=== PATIENT | male | born 1990 | race African-American/Black ===

== ENCOUNTER 2017-05-02 08:17 | Emergency (ER) | payer MEDICAID ==
[2017-05-02 10:33] VITALS: BP 134/81
--- NOTE | 2017-05-03 01:31 | ER ---
DATE SEEN: 05/02/2017 HISTORY OF PRESENT ILLNESS: The patient is a 26-year-old gentleman who last night slammed his right middle finger in his car door, has swelling of middle finger, primarily at the PIP joint. No nail involved. Has limited range of motion in that joint, has swelling and pain. Has taken ibuprofen without relief or benefit. ALLERGIES: No known drug allergies. CURRENT MEDICATIONS: Ibuprofen. PAST FAMILY MEDICAL HISTORY: Noncontributory. SOCIAL HISTORY: He is a student from [employer]. REVIEW OF SYSTEMS: CONSTITUTIONAL: No nausea, vomiting, fevers, or chills. PHYSICAL EXAMINATION: VITAL SIGNS: Temperature 36.9, pulse is 70, blood pressure 137/74, respiratory rate 18, 98% on room air. GENERAL: No apparent acute distress. EXTREMITIES: Right hand has no tenderness in the wrist, has swelling at his 3rd PIP joint. No subungual blood. Sensation is normal. No obvious deformity. RADIOGRAPHICAL DATA: X-ray, three view of his right hand, is negative for fracture. ASSESSMENT: Right 3rd finger contusion. PLAN: Satish tape. Ice for swelling. Ultram is written for pain. /[id number] PING/ERENDIRA
--- NOTE | 2017-05-03 12:29 | CR ---
INDICATION: Slammed hand in car door. Jammed 3rd finger. RIGHT HAND, 3 VIEWS: FINDINGS: No comparison imaging. I do not see a fracture or dislocation as visualized. If the patient should continue to have symptoms, consider follow-up radiographs in 7-10 days. BRADLEYD
== END 2017-05-02 09:30 | disposition home or self-care (01) ==
LOC: FB.ED 08:17
DX: S60.031A Contusion of right middle finger without damage to nail, initial encounter (principal); W23.0XXA Caught, crushed, jammed, or pinched between moving objects, initial encounter
CPT/HCPCS: 73130-RT; 99283

== ENCOUNTER 2017-09-14 10:03 | Emergency (ER) | payer MEDICAID ==
--- NOTE | 2017-09-14 10:29 | EDM.PDOC ---
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 as well taken no meds at home except naproxen for his knee and MVI lives alone at present labs 3m ago (CBC, BMP, uric acid) were neg he ate eggs 2h ago - Related Data Allergies Allergy/AdvReac Type Severity Reaction Status Date / Time No Known Allergies Allergy Verified 05/02/17 08:22 Home Meds: Home Meds traMADol [Ultram] 50 mg PO Q4H PRN #7 tab 05/02/17 [Rx] Loperamide [Imodium AD] 2 mg PO Q1H PRN #20 tablet 09/14/17 [Rx] Metoclopramide HCl 10 mg PO Q6H PRN #10 tablet 09/14/17 [Rx] Past Medical History Psychiatric History: Reports: Anxiety, Depression, Other (See Below) Other Psychiatric History: states was on medication but stopped taking 1 year ago Social & Family History - Family History Family Medical History: Noncontributory - Tobacco Use Smoking Status *Q: Light Tobacco Smoker Years of Tobacco use: 4 Packs/Tins Daily: 0 - Caffeine Use Caffeine Use: Reports: Energy Drinks, Soda - Recreational Drug Use Recreational Drug Use: No ED ROS GENERAL - Review of Systems Review Of Systems: See Below Constitutional: Reports: No Symptoms HEENT: Reports: No Symptoms Respiratory: Reports: No Symptoms Cardiovascular: Reports: No Symptoms Endocrine: Reports: No Symptoms GI/Abdominal: Reports: Diarrhea, Nausea, Vomiting. Denies: Abdominal Pain : Reports: No Symptoms Musculoskeletal: Reports: No Symptoms Skin: Reports: No Symptoms Neurological: Reports: No Symptoms Psychiatric: Reports: No Symptoms Hematologic/Lymphatic: Reports: No Symptoms Immunologic: Reports: No Symptoms ED EXAM, GENERAL - Physical Exam Exam: See Below Exam Limited By: No Limitations General Appearance: Alert, WD/WN, No Apparent Distress Ears: Normal External Exam, Hearing Grossly Normal Nose: Normal Inspection, Normal Mucosa, No Blood Throat/Mouth: Normal Inspection, Normal Lips, Normal Teeth, Normal Gums, Normal Oropharynx, Normal Voice, No Airway Compromise Head: Atraumatic, Normocephalic Neck: Normal Inspection, Supple, Non-Tender, Full Range of Motion Respiratory/Chest: No Respiratory Distress, Lungs Clear, Normal Breath Sounds, No Accessory Muscle Use, Chest Non-Tender Cardiovascular: Normal Peripheral Pulses, Regular Rate, Rhythm, No Edema, No Gallop, No JVD, No Murmur, No Rub GI/Abdominal: Normal Bowel Sounds, Soft, Non-Tender, No Organomegaly, No Distention, No Mass Back Exam: Normal Inspection, Full Range of Motion, NT Extremities: Normal Inspection, Normal Range of Motion, Non-Tender, No Pedal Edema Neurological: Alert, Oriented, CN II-XII Intact, Normal Cognition, Normal Gait, No Motor/Sensory Deficits Psychiatric: Normal Affect, Normal Mood Skin Exam: Warm, Dry, Intact, Normal Color, No Rash Lymphatic: No Adenopathy Departure - Departure Time of Disposition: 10:26 Disposition: Home, Self-Care 01 Condition: Good Clinical Impression: Viral gastroenteritis - Discharge Information Prescriptions: Loperamide [Imodium AD] 2 mg PO Q1H PRN #20 tablet PRN Reason: Diarrhea Metoclopramide HCl 10 mg PO Q6H PRN #10 tablet PRN Reason: Nausea Instructions: Viral Gastroenteritis, Adult, [id number] Referrals: PCP,Not In Area [Primary Care Provider] - Forms: ED Department Discharge, ED Return to Work/School Form Additional Instructions: For diarrhea, take loperamide 2 mg 2 tabs after next loose stool, then 1 tab after each loose stool up to 8 tabs in 24 hours. For nausea, take metoclopramide 10 mg 1 tab every 6 hours as needed. Increase fluids. No work today. See your doctor in 3 days if you are not better. Call your Physician or Return to Emergency Department if: * Your condition worsens in any way. * You develop fever greater than 100.4. * You have vomiting that does not stop with medications. * You have pain that is not controlled with medications.
[2017-09-14 10:34] VITALS: BP 136/64
== END 2017-09-14 10:37 | disposition home or self-care (01) ==
LOC: FB.ED 10:03
DX: A08.4 Viral intestinal infection, unspecified (principal); F17.210 Nicotine dependence, cigarettes, uncomplicated
CPT/HCPCS: 99283

== ENCOUNTER 2017-10-13 16:35 | Emergency (ER) | payer MEDICAID ==
[2017-10-13] MEDS ORDERED: Bupivacaine 0.5% 30 ML SDV INFILT ONE (16:36)
[2017-10-13] MEDS ORDERED: Lidocaine/EPINEPHrine/Tetracaine Soln 5 ML Each TOP STA (17:12)
--- NOTE | 2017-10-13 18:05 | EDM.PDOC ---
ED HPI GENERAL MEDICAL PROBLEM - General Chief Complaint: Laceration Stated Complaint: HEAD WOUND Time Seen by Provider: 10/13/17 16:40 Source of Information: Reports: Patient History Limitations: Reports: No Limitations - History of Present Illness INITIAL COMMENTS - FREE TEXT/NARRATIVE: 26 y.o.b.male came to the ed shortly after he fell over a ball and hit head on the ground at his own homw, no LOC. Pt noticed a LAC at his mid forehead, no active bleed. No N/V/D or any other acute medical issues. BP 152/82 pulse 84 Temp 37.2. Pt denies drug use. Onset: Today Onset Date: 10/26/17 Onset Time: 16:00 Duration: Minutes: Location: Reports: Head Quality: Reports: Dull Severity: Mild Improves with: Reports: Rest Worsens with: Reports: Movement Context: Reports: Other (fell over a ball and hit head on the ground, no LOC) Treatments CONSTRUCTION GRIP: Reports: NSAIDS Frontal Head Pain Score (Numeric/FACES): 8 - Related Data Allergies Allergy/AdvReac Type Severity Reaction Status Date / Time No Known Allergies Allergy Verified 10/13/17 16:50 Home Meds: Home Meds NK [No Known Home Meds] 09/14/17 [History] Past Medical History - Past Health History Medical/Surgical History: Denies Medical/Surgical History Psychiatric History: Reports: Anxiety, Depression, Other (See Below) Other Psychiatric History: states was on medication but stopped taking 1 year ago - Infectious Disease History Infectious Disease History: Reports: Chicken Pox Social & Family History - Family History Family Medical History: Noncontributory - Tobacco Use Smoking Status *Q: Light Tobacco Smoker Years of Tobacco use: 4 Packs/Tins Daily: 0 Tobacco Use Comment: rarely - Caffeine Use Caffeine Use: Reports: None - Recreational Drug Use Recreational Drug Use: No ED ROS GENERAL - Review of Systems Review Of Systems: See Below Constitutional: Reports: No Symptoms HEENT: Reports: Other (head lac) Respiratory: Reports: No Symptoms Cardiovascular: Reports: No Symptoms Endocrine: Reports: No Symptoms GI/Abdominal: Reports: No Symptoms : Reports: No Symptoms Musculoskeletal: Reports: No Symptoms Skin: Reports: Wound (mid forehead) Neurological: Reports: No Symptoms Psychiatric: Reports: No Symptoms Hematologic/Lymphatic: Reports: No Symptoms Immunologic: Reports: No Symptoms ED EXAM, SKIN/RASH Exam: See Below Exam Limited By: No Limitations General Appearance: Alert, WD/WN, Mild Distress Eye Exam: Bilateral Eye: Normal Inspection Ears: Normal External Exam Nose: Normal Inspection Throat/Mouth: Normal Inspection Head: Normocephalic, Other (forehead head laceration) Neck: Normal Inspection, Supple, Non-Tender Respiratory/Chest: No Respiratory Distress, Lungs Clear, Normal Breath Sounds Cardiovascular: Normal Peripheral Pulses, Regular Rate, Rhythm, No Edema, No Gallop GI/Abdominal: Normal Bowel Sounds, Soft, Non-Tender, No Organomegaly (Male) Exam: Deferred Rectal (Males) Exam: Deferred Back Exam: Normal Inspection, Full Range of Motion Extremities: Normal Inspection, Normal Range of Motion, Non-Tender Neurological: Alert, Oriented, CN II-XII Intact, Normal Cognition, Normal Gait Psychiatric: Normal Affect, Normal Mood Skin: Warm, Dry, Normal Color, No Rash, Other (LAC mid forhead) Location, Skin: Head Lymphatic: No Adenopathy ED SKIN PROCEDURES - Laceration/Wound Repair Middle Anterior Hand Lac/Wound length In cm: 3.5 Appearance: Subcutaneous, Linear, Clean Distal NVT: Neuro & Vascular Intact, No Tendon Injury Anesthetic Type: Local Local Anesthesia - Bupivicaine (Marcaine): 0.5% Plain Local Anesthetic Volume: 5cc Skin Prep: Providone-Iodine (Betadine) Exploration/Debridement/Repair: Wound Explored, In a Bloodless Field, Explored to Base Closed with: Sutures Suture Size: 4-0 # of Sutures: 8 Suture Type: Interrupted, Other (ethilon) Tetanus Status Addressed: Other (pt will check his tetanus Status in am. He was adviced to check on that in the next 72 hours.) Complications: No Course - Vital Signs Text/Narrative:: 26 y.o.b.male came to the ed shortly after he fell over a ball and hit head on the ground at his own homw, no LOC. Pt noticed a LAC at his mid forehead, no active bleed. No N/V/D or any other acute medical issues. BP 152/82 pulse 84 Temp 37.2. Pt denies drug use. PE: Mid forehead LAC Procedure: Please see note above Labs: Not indicated Impression: laceration mid forehead, repaired Tx: Wound repair, wound care, KANG wrap Reexam: Improved Plan: D/C with instructions Last Recorded V/S: Last Vital Signs Temp 36.8 C 10/13/17 18:13 Pulse 81 10/13/17 18:13 Resp 18 10/13/17 18:13 BP 141/78 H 10/13/17 18:13 Pulse Ox 99 10/13/17 18:13 - Orders/Labs/Meds Meds: Medications Discontinued Medications Generic Name Dose Route Start Last Admin Trade Name Chase PRN Reason Stop Dose Admin Lidocaine/Tetracaine 5 ml 10/13/17 17:12 10/13/17 17:20 Let Soln TOP 10/13/17 17:13 5 ml ONETIME STA Administration Departure - Departure Time of Disposition: 18:06 Disposition: Home, Self-Care 01 Condition: Good Clinical Impression: Laceration of head Qualifiers: Encounter type: initial encounter Location of open wound of head: scalp Foreign body presence: without foreign body Qualified Code(s): S01.01XA - Laceration without foreign body of scalp, initial encounter - Discharge Information Instructions: Laceration Care, [facility] Forms: ED Department Discharge, ED Return to Work/School Form Additional Instructions: Please apply neosporine ointment to wound twice daily for 4 days, please leave KANG wrap on till tomorrow 8 am. Wound check in 2 days, suture removal in 10 days. Please come back to the ED if your symptoms get worse acutely. ICE application and Motrin for pain.
[2017-10-13 18:13] VITALS: BP 141/78
== END 2017-10-13 18:20 | disposition home or self-care (01) ==
LOC: FB.ED 16:35
DX: S01.81XA Laceration without foreign body of other part of head, initial encounter (principal); F17.210 Nicotine dependence, cigarettes, uncomplicated; W18.30XA Fall on same level, unspecified, initial encounter; Y92.009 Unspecified place in unspecified non-institutional (private) residence as the place of occurrence of the external cause
CPT/HCPCS: 12013; 99282; A9270